=== PATIENT | male | born 1945 | race Asian ===

== ENCOUNTER → 2023-09-18 | Outpatient (CLI) | payer MEDICARE ==
--- NOTE | 2023-09-18 17:59 | P.SLEEP ---
History of Present Illness DATE: 09/18/2023 CONSULTATION/NEW PATIENT EVALUATION HISTORY OF PRESENT ILLNESS/SLEEP-WAKE EVALUATION: 78 year old gentleman had been evaluated in the sleep center for possible obstructive sleep apnea hypopnea syndrome. Patient has history of obstructive sleep apnea diagnosed about 10 years ago in another institution, she was started on treatment with CPAP, but then for different reasons was not able to use CPAP therapy. SLEEP SCHEDULE: Usually sleep schedule from midnight1 AM until 6 - 7 AM. FALLING ASLEEP: Sometimes patient has difficulties with falling asleep, although no TV in bedroom. DURING SLEEP: Patient usually sleeps on the side position with snoring and witnessed episodes of stop breathing during the sleep. No history of hypnogogical hallucinations, sleep paralysis, or cataplexy. DURING THE DAY/WAKE STATE: In the morning patient wake up tired. [place] sleepiness scale is increased to 11. Patient takes nap at around 6 PM. PAST MEDICAL HISTORY: Hypertension, hyperlipidemia, diabetes mellitus. PAST SURGICAL HISTORY: None. MEDICATIONS: Jardiance 25 mg once a day, Crestor 10 mg once a day, irbesartan 300 mg once a day, metoprolol 25 mg once a day, aspirin 81 mg once a day, Trulicity, tresiba, pioglitazone-metformin 15-500 mg twice a day. SOCIAL HISTORY: Positive history of smoking in the past quit about 50 years ago, alcohol consumption occasional. FAMILY HISTORY: Arthritis, liver problems. REVIEW OF SYSTEMS: Snoring, sleepiness during the day. No fevers. No double vision. No recent chest pain. No shortness of breath. No abdominal pain. No bleeding episodes. No blood in urine. No seizure episodes. PHYSICAL EXAMINATION: GENERAL: A pleasant patient without any distress. VITAL SIGNS: BP 143/85, HR 93, RR 12, weight 198.6 pounds, height 5 foot 6-1/4 inches, body mass index 31.7. HEENT: PERRLA, EOMI. Evaluation of oropharynx showed tongue protrudes midline, low position of soft palate Mallampati 4. NECK: Supple. No JVD. Thyroid is not palpable. 17.5 inches in circumference. LUNGS: Clear to percussion and to auscultation. Good air exchange. No wheezing or rhonchi. HEART: S1, S2 regular. No murmurs, gallops or rubs. ABDOMEN: Soft and nontender. Bowel sounds are present. No organomegaly appreciated. EXTREMITIES: No clubbing or cyanosis. AIR CARRIER OPERATIONS INSPECTOR: Awake, alert, and oriented x3. Cranial nerves 2 to 7 intact. There is no fasciculation or atrophy noted. No focal deficits observed. ASSESSMENT: 1. Snoring, witnessed episodes of stop breathing during the sleep, extremely low position of soft palate Mallampati 4, wide neck 17.5 inches in circumference, history of obstructive sleep apnea hypopnea syndrome in the past. Obstructive sleep apnea hypopnea syndrome. 2. Hypertension. 3. Diabetes mellitus. 4. Hyperlipidemia. 5 mild obesity. PLAN: 1. Polysomnography for evaluation of patient's breathing during sleep. 2. CPAP/BiPAP titration if sleep study confirms obstructive sleep apnea- hypopnea syndrome. 3. Preferable position during sleep on the side. 4. No driving if patient feels any sleepiness. Patient is aware of civil and criminal liability for unsafe driving. 5. Sleep hygiene with regular sleep time for at least 7.5-8 hours. 6. Watching and losing weight. Thank you very much for referring this patient for consultation. Sincerely, Sandeep Vinson MD, PhD, FAASM. Diplomat of [employer], Sleep Medicine Board by [employer] Engineering Documentation Specialist of [facility] [place] Past Medical History Past Medical History: Diabetes Mellitus, Hyperlipidemia, Hypertension History of Any Multi-Drug Resistant Organisms: None Reported Additional Past Surgical History / Comment(s): EGD Past Anesthesia/Blood Transfusion Reactions: No Reported Reaction Past Psychological History: No Psychological Hx Reported Past Alcohol Use History: Rare Additional Past Alcohol Use History / Comment(s): 1978-QUIT SMOKING Past Drug Use History: None Reported - Past Family History Mother Family Medical History: No Reported History Medications and Allergies Home Medications Medication Instructions Recorded Confirmed Type Insulin Degludec [Tresiba 15 units INJ DAILY 01/27/18 01/27/18 History Flextouch U-100] Irbesartan [Avapro] 150 mg PO DAILY 01/27/18 01/27/18 History Pioglitazone HCl/Metformin HCl 1 each PO BID 01/27/18 01/27/18 History [Actoplus Met 15 mg-500 mg Tab] Simvastatin [Zocor] 20 mg PO HS 01/27/18 01/27/18 History Allergies Allergy/AdvReac Type Severity Reaction Status Date / Time No Known Allergies Allergy Verified 01/27/18 11:14 Sleep Note - Sleep Note Sleep Note: Temperature: Pulse Rate: Respiratory Rate: Blood Pressure: SpO2: Height: Weight: BMI: Neck Circumference:
== END ==
LOC: 3 N SLEEP 13:56
PROVIDERS: ATTEND Internal Medicine
DX: G47.33 Obstructive sleep apnea (adult) (pediatric) (principal); I10 Essential (primary) hypertension; E11.9 Type 2 diabetes mellitus without complications; E78.5 Hyperlipidemia, unspecified; E66.9 Obesity, unspecified; R06.83 Snoring; Z79.4 Long term (current) use of insulin; Z87.891 Personal history of nicotine dependence
CPT/HCPCS: 99211

== ENCOUNTER 2024-05-10 19:13 | Outpatient (CLI) | payer MEDICARE ==
--- NOTE | 2024-05-13 13:41 | P.PCN ---
Description of Procedure: CLINICAL: Titration with positive air pressure has been done for correction of respiratory abnormalities during sleep. DESCRIPTION OF PROCEDURE: The standard montage for clinical polysomnography included the electroencephalogram, the electrocardiogram, the mentalis surface electromyography and Lead II cardiography. The respiratory battery consisted of measurements of nasal /buccal air flow, pressure transducer measurements from the nose, thoracic and /or abdominal effort and intercostal surface electromyography. Video monitoring has been done to check for any parasomnia events. Nocturnal oxyhemoglobin saturations were obtained by finger oximetry. Step-jane titration with positive airway pressure was utilized to control respiratory events. Raw data of sleep recording has been reviewed and is adequate. RESULTS: Sleep efficiency was slightly decreased to 82.1%. Latency to sleep onset was normal at 10.5 minutes.]. Sleep architecture showed stage N1 was normal 7.1%, Delta sleep was absent 0%, REM sleep was increased to 30.3%. Heart rate was minimum 51 BPM, maximum 64 BPM, average 57 BPM. EMG showed 0 periodic limb movements per hour. PAP titration have been done with CPAP up to the pressure 14 cm H2O. The best results were at the pressure 12 cm H2O. Apnea hypopnea index reduced to 1.3. IMPRESSION: 1. Severe obstructive sleep apnea hypopnea syndrome on controle with PAP treatment. 2. No significant periodic limb movements have been documented. Please see other impressions from consultation. PLAN: 1. The patient will have treatment with positive air pressure equipment with the level of pressure AutoPap 5-14 cm H2O and should use it every night for the whole night. 2. Watching weight. 3. Sleep hygiene with regular time in bed for at least 8 hours. 4. No driving if feeling any sleepiness. 5. I will see the patient for follow up visit to explain the results of the test, recommendations, check compliance with treatment and make any necessary adjustment related to mask fitting, pressure and humidification. Thank you very much for allowing me to participate in the management of your patient. Sincerely, Sandeep Vinson MD, PhD, FAASM Diplomat of [employer] Sleep Medicine Board of [employer] Medicine [facility] [place] cc: Susan Camilo MD
== END 2024-05-11 06:42 | disposition home or self-care (01) ==
LOC: 3 N SLEEP 19:13
PROVIDERS: ATTEND Internal Medicine
CPT/HCPCS: 95811

== ENCOUNTER → 2024-06-16 | Outpatient (CLI) | payer MEDICARE ==
--- NOTE | 2024-06-16 14:23 | P.PROGSL ---
Subjective DATE: 06/16/2024 TELEMEDICINE FOLLOW UP VISIT. I discussed results of sleep studies with patient in details. Polysomnogram documented severe obstructive sleep apnea hypopnea syndrome with apnea hypopnea index 41.8 with oxygen desaturation to severely low 66%. CPAP titration was successful for eliminating abnormal respiratory events, the best CPAP pressure was 12 cm of water. Patient likes the mask which was used during titration. Patient continued to have symptoms of obstructive sleep apnea hypopnea syndrome including snoring and sleepiness during the day. MEDICATIONS:1. Jardiance 25 mg once a day 2. Crestor 10 mg once a day 3. Irbesartan 300 mg once a day 4. Metoprolol 25 mg once a day 5. Aspirin 81 mg once a day 6. Trulicity Impressions: 1. Obstructive sleep apnea-hypopnea syndrome in severe range, apnea hypopnea index 41.8 with oxygen desaturation to 66% most uncontrolled with CPAP with a pressure 12 cm of water. 2. Hypertension. 3. Diabetes mellitus. 4. Hyperlipidemia. 5. Mild obesity. Plan: 1. Patient will be started on treatment with AutoPap and should use equipment every night for the whole night. 2. Watching and losing weight 3. Sleep hygiene with regular time in bed for at least 8 hours. 4. Precautions related to driving. No driving if feel any sleepiness. 5. I will see patient for follow-up visit in 30 to 90 days after patient will get CPAP unit to evaluate clinical response on treatment with CPAP, compliance with treatment and [place] adjustments related to mask fitting pressure and humidification. Thank you very much for allowing me to participate in the management of your patient. Sandeep Vinson MD, PhD, FAASM. Diplomat of [place] [employer] Medicine, Sleep Medicine Board by [place] [employer] Cafe Operator of [facility] [place] Objective Home Medications: Home Medications Medication Instructions Recorded Confirmed Type Insulin Degludec [Tresiba 15 units INJ DAILY 01/27/18 01/27/18 History Flextouch U-100] Irbesartan [Avapro] 150 mg PO DAILY 01/27/18 01/27/18 History Pioglitazone HCl/Metformin HCl 1 each PO BID 01/27/18 01/27/18 History [Actoplus Met 15 mg-500 mg Tab] Simvastatin [Zocor] 20 mg PO HS 01/27/18 01/27/18 History
== END ==
LOC: 3 N SLEEP 14:11
PROVIDERS: ATTEND Internal Medicine
DX: G47.33 Obstructive sleep apnea (adult) (pediatric) (principal); G47.36 Sleep related hypoventilation in conditions classified elsewhere; I10 Essential (primary) hypertension; E11.9 Type 2 diabetes mellitus without complications; E78.5 Hyperlipidemia, unspecified; E66.9 Obesity, unspecified; Z79.4 Long term (current) use of insulin; Z79.84 Long term (current) use of oral hypoglycemic drugs; Z79.899 Other long term (current) drug therapy; Z87.891 Personal history of nicotine dependence; Z68.31 Body mass index [BMI] 31.0-31.9, adult

== ENCOUNTER → 2024-06-17 | Outpatient (CLI) | payer MEDICARE ==
[2024-06-17 15:24] LABS: Basophils # (A) 0.02 X 10*3/uL (0.00-0.10); Basophils % (A) 0.3 %; Eosinophils # (A) 0.12 X 10*3/uL (0.04-0.35); HGB 13.2 g/dL (13.0-17.0); Lymphocytes # (A) 1.67 X 10*3/uL (0.90-5.00); Lymphocytes % (A) 28.1 %; MCH 31.5 pg (27.0-32.0); MCHC 32.2 g/dL (32.0-37.0); MCV 97.9 FL (80.0-97.0); Mean Platelet Volume 9.7 FL (9.5-12.2); Monocytes # (A) 0.58 X 10*3/uL (0.20-1.00); Monocytes % (A) 9.8 %; NRBC Per 100 WBC 0 X 10*3/uL (0.00-0.01); Neutrophils # (A) 3.53 X 10*3/uL (1.80-7.70); Neutrophils % (A) 59.5 %; Platelet Count 251 X 10*3/uL (140-440); RBC 4.19 X 10*6/uL (4.40-5.60); RDW 12.3 % (11.5-14.5); WBC 5.94 X 10*3/uL (4.50-10.00)
[2024-06-17 15:55] LABS: ALT 26 U/L (10-49); AST 28 U/L (14-35); Albumin 4.6 g/dL (3.8-4.9); Albumin/Globulin Ratio 1.48 Ratio (1.60-3.17); Alkaline Phosphatase 54 U/L (41-126); BUN/Creat Ratio 16.58 Ratio (12.00-20.00); Blood Urea Nitrogen 19.9 mg/dL (9.0-27.0); Calcium 9.5 mg/dL (8.7-10.3); Carbon Dioxide 28.1 mmol/L (21.6-31.8); Chloride 103 mmol/L (96-109); Chol/HDL Ratio 1.98 Ratio; Globulin 3.1 g/dL (1.6-3.3); Glucose 167 mg/dL (70-110); LDL Cholesterol,Calculated 40.7 mg/dL (0.0-131.0); Potassium 5.4 mmol/L (3.5-5.5); Sodium 143 mmol/L (135-145); Total Bilirubin 0.6 mg/dL (0.3-1.2); Total Protein 7.7 g/dL (6.2-8.2)
[2024-06-17 23:36] LABS: Urine Creatinine 62.3 mg/dL (39.0-259.0)
== END | disposition home or self-care (01) ==
LOC: LABWHC1 10:10
PROVIDERS: ATTEND Family Medicine
CPT/HCPCS: 36415; 80053; 80061; 82043; 82306; 82570; 82607; 83036; 84443; 85025

== ENCOUNTER 2024-07-14 07:09 | Day surgery (SDC) | payer MEDICARE ==
[2024-07-14] MEDS: IV FLUID CONTINUATION 1,000 ML IV ONE (07:37)
[2024-07-14 07:39] VITALS: TEMP 97
[2024-07-14] MEDS: LACTATED RINGERS 1,000 ML IV SCH (07:51)
[2024-07-14 07:54] LABS: Glucose,Whole Blood 112 mg/dL (70-110)
[2024-07-14] MEDS ORDERED: LIDOCAINE 1% INJ 10MG/ML (20 ML MDV) ONE (09:11)
[2024-07-14] MEDS ORDERED: PROPOFOL 10 MG/ML 20 ML VIAL IV ONE (09:11)
--- NOTE | 2024-07-14 09:31 | P.PCN ---
Date of Procedure: 07/14/24 Procedure(s) Performed: BRIEF HISTORY: Patient is a 78-year-old pleasant male scheduled for an elective colonoscopy as a part of screening for colon cancer. PROCEDURE PERFORMED: Colonoscopy. PREOPERATIVE DIAGNOSIS: Screening for colon cancer. IV sedation per Anesthesia. PROCEDURE: After informed consent was obtained, the patient, was brought into the endoscopy unit. IV sedation was administered by Anesthesia under continuous monitoring. Digital rectal examination was normal. Initially the Olympus CF-160 flexible video colonoscope was then inserted in the rectum, gradually advanced into the cecum without any difficulty. Careful examination was performed as the scope was gradually being withdrawn. Ileocecal valve and the appendiceal orifice were visualized and appeared normal. Prep was excellent. Mucosa of the cecum, ascending colon, transverse colon, descending colon, sigmoid colon, and rectum appeared normal. Retroflexion was performed in the rectum and no lesions were seen. The patient tolerated the procedure well. IMPRESSION: Normal-appearing colon from rectum to cecum with no evidence of colorectal neoplasia. RECOMMENDATIONS: Findings of this examination were discussed with the patient as well as his family. He was advised to have repeat screening colonoscopy in 10 years.
[2024-07-14 09:49] VITALS: BP 121/80; PULSE 66; RESP 16
== END 2024-07-14 10:05 | disposition home or self-care (01) ==
LOC: ORWHC2ENDO 07:09
PROVIDERS: ATTEND Internal Medicine Gastroenterology
DX: Z12.11 Encounter for screening for malignant neoplasm of colon (principal); I10 Essential (primary) hypertension; E78.5 Hyperlipidemia, unspecified; G47.33 Obstructive sleep apnea (adult) (pediatric); E11.9 Type 2 diabetes mellitus without complications; Z79.4 Long term (current) use of insulin; Z79.84 Long term (current) use of oral hypoglycemic drugs; Z79.899 Other long term (current) drug therapy
CPT/HCPCS: J2003; J2704; G0121

== ENCOUNTER → 2024-08-23 | Outpatient (CLI) | payer MEDICARE ==
[2024-08-23 17:10] VITALS: BP 127/75; PULSE 92; RESP 16; TEMP 98
--- NOTE | 2024-08-23 17:40 | P.PROGSL ---
Subjective DATE: 08/23/2024 FOLLOW UP VISIT. Patient with obstructive sleep apnea hypopnea syndrome return to sleep center for follow-up visit. Information from previous visit have been reviewed. Patient is using PAP equipment every night for the whole night, getting PAP supplies in time. The patient does not have significant problems with the mask, PAP unit and humidification. [place] sleepiness scale is 9, which is close to the border. I checked information from PAP unit. PAP unit pressure 5-14, average 10.3 cm H2O. Usage is 70% for more then 4 hours, average 5.6 hours per night. Leak is 29 l/m, which is in acceptable range. Apnea Hypopnea Index is 5.1, which is normal range. MEDICATIONS have been reviewed, please see below. During physical exam: GENERAL: A pleasant patient without any distress. VITAL SIGNS: Please see below, weight is 191.8 lbs. HEENT: PERRLA, EOMI.low position of soft palate, Mallapati 4 . NECK: Supple. No JVD. LUNGS: Clear to percussion and to auscultation. Good air exchange. No wheezing or rhonchi. HEART: S1, S2 regular. ABDOMEN: Soft and nontender.[] EXTREMITIES: No clubbing or cyanosis. MANPOWER DEVELOPMENT SPECIALIST: Awake, alert, and oriented x3. No focal deficit. Impressions: 1. Severe obstructive sleep apnea-hypopnea syndrome. Patient demonstrated good compliance with treatment, benefiting from treatment. 2. Obesity. 3. Hypertension. 4. Diabetes mellitus. 5. Hyperlipidemia. Plan: 1. Continue using PAP equipment every night for the whole night. 2. Sleep hygiene with regular time in bed for at least 7.5-8 hours 3. PAP unit should stay lower then position of the head. 4. Advised patient to remove all remaining water from humidifier canister daily and make it dry after each usage. Refill canister with fresh distilled water before each usage. 5. Watching weight. 6. Precautions related to driving. No driving if feel any sleepiness. 7. I will maintain prescription for PAP supplies including mask, tube, filters. 8. Follow up visit in 8 months or earlier if patient has any problems. Thank you very much for allowing me to participate in the management of your patient. Sandeep Vinson MD, PhD, FAASM. Diplomat of [place] [employer], Sleep Medicine Board by [place] Medicine Dietetic Tech of [facility] [place] cc: Susan Camilo MD Objective - Vital Signs Vital Signs: Vital Signs Temp 98.0 F 08/23/24 17:09 Pulse 92 08/23/24 17:09 Resp 16 08/23/24 17:09 BP 127/75 08/23/24 17:09 Pulse Ox 96 08/23/24 17:09 FiO2 Intake & Output 08/22/24 08/23/24 08/23/24 18:59 06:59 18:59 Weight 86.863 kg Home Medications: Home Medications Medication Instructions Recorded Confirmed Type Irbesartan [Avapro] 150 mg PO DAILY 01/27/18 07/14/24 History Pioglitazone HCl/Metformin HCl 1 each PO BID 01/27/18 07/14/24 History [Actoplus Met 15 mg-500 mg Tab] Aspirin 81 mg PO DAILY 07/12/24 07/14/24 History Furosemide [Lasix] 20 mg PO DIRECTED PRN 07/12/24 07/14/24 History Insulin Glargine,Hum.rec.anlog 36 units SQ DAILY 07/12/24 07/14/24 History [Lantus Solostar Pen] Metoprolol Succinate [Kapspargo 25 mg PO DAILY 07/12/24 07/14/24 History Sprinkle] Rosuvastatin [Crestor] 10 mg PO HS 07/12/24 07/14/24 History Unk Multi Vitamin For Men 1 tab PO DAILY 07/12/24 07/14/24 History
== END ==
LOC: 3 N SLEEP 16:11
PROVIDERS: ATTEND Internal Medicine
DX: G47.33 Obstructive sleep apnea (adult) (pediatric) (principal); E66.9 Obesity, unspecified; I10 Essential (primary) hypertension; E11.9 Type 2 diabetes mellitus without complications; E78.5 Hyperlipidemia, unspecified; Z99.89 Dependence on other enabling machines and devices; Z79.899 Other long term (current) drug therapy; Z79.4 Long term (current) use of insulin; Z87.891 Personal history of nicotine dependence; Z68.31 Body mass index [BMI] 31.0-31.9, adult
CPT/HCPCS: 99212

== ENCOUNTER → 2024-12-02 | Outpatient (CLI) | payer MEDICARE ==
[2024-12-02 14:18] VITALS: BP 129/65; PULSE 78; RESP 16; TEMP 97.6
--- NOTE | 2024-12-02 14:51 | P.PROGSL ---
Subjective DATE: 12/02/2024 FOLLOW UP VISIT. Patient with obstructive sleep apnea hypopnea syndrome return to sleep center for follow-up visit. Information from previous visit have been reviewed. This is first visit with new CPAP unit. Patient is using PAP equipment every night for the whole night, getting PAP supplies in time. The patient does not have significant problems with the mask, PAP unit and humidification. [place] sleepiness scale is 8, which is normal. I checked information from PAP unit. PAP unit pressure 5-14, average 11.6 cm H2O. Usage is 90% and 73% for more than 4 hours, average 5.5 hours. Leak is increased to 31.8 l/m. Apnea Hypopnea Index is 5.7, which is borderline. MEDICATIONS have been reviewed, please see below. During physical exam: GENERAL: A pleasant patient without any distress. VITAL SIGNS: Please see below, weight is 187 lbs. HEENT: PERRLA, EOMI.low position of soft palate, Mallapati 4 . NECK: Supple. No JVD. LUNGS: Clear to percussion and to auscultation. Good air exchange. No wheezing or rhonchi. HEART: S1, S2 regular. ABDOMEN: Soft and nontender. Slightly obese EXTREMITIES: No clubbing or cyanosis. NURSING HOME ADMINISTRATOR: Awake, alert, and oriented x3. No focal deficit. Impressions: 1. Obstructive sleep apnea-hypopnea syndrome. Patient demonstrated great compliance with treatment, benefiting from treatment. 2. Obesity. 3. Hypertension. 4. Diabetes mellitus. 5. Hyperlipidemia. Plan: 1. Continue using PAP equipment every night for the whole night. 2. Sleep hygiene with regular time in bed for at least 7.5-8 hours 3. PAP unit should stay lower then position of the head. 4. Advised patient to remove all remaining water from humidifier canister daily and make it dry after each usage. Refill canister with fresh distilled water before each usage. 5. Watching weight. 6. Precautions related to driving. No driving if feel any sleepiness. 7. I will maintain prescription for PAP supplies including mask, tube, filters. 8. Follow up visit in 8 months or earlier if patient has any problems. Thank you very much for allowing me to participate in the management of your patient. Sandeep Vinson MD, PhD, FAASM. Diplomat of [place] [employer] [employer] Sleep Medicine, Sleep Medicine Board by [place] [employer] [employer] Medicine Stacking Machine Operator of [facility] [place] Objective - Vital Signs Vital Signs: Vital Signs Temp 97.6 F 12/02/24 14:17 Pulse 78 12/02/24 14:17 Resp 16 12/02/24 14:17 BP 129/65 12/02/24 14:17 Pulse Ox 98 12/02/24 14:17 FiO2 Intake & Output 12/01/24 12/02/24 12/02/24 18:59 06:59 18:59 Weight 84.822 kg Home Medications: Home Medications Medication Instructions Recorded Confirmed Type Irbesartan [Avapro] 150 mg PO DAILY 01/27/18 07/14/24 History Pioglitazone HCl/Metformin HCl 1 each PO BID 01/27/18 07/14/24 History [Actoplus Met 15 mg-500 mg Tab] Aspirin 81 mg PO DAILY 07/12/24 07/14/24 History Furosemide [Lasix] 20 mg PO DIRECTED PRN 07/12/24 07/14/24 History Insulin Glargine,Hum.rec.anlog 36 units SQ DAILY 07/12/24 07/14/24 History [Lantus Solostar Pen] Metoprolol Succinate [Kapspargo 25 mg PO DAILY 07/12/24 07/14/24 History Sprinkle] Rosuvastatin [Crestor] 10 mg PO HS 07/12/24 07/14/24 History Unk Multi Vitamin For Men 1 tab PO DAILY 07/12/24 07/14/24 History
== END | disposition home or self-care (01) ==
LOC: 3 N SLEEP 13:38
PROVIDERS: ATTEND Internal Medicine
DX: G47.33 Obstructive sleep apnea (adult) (pediatric) (principal); I10 Essential (primary) hypertension; E66.9 Obesity, unspecified; E11.9 Type 2 diabetes mellitus without complications; E78.5 Hyperlipidemia, unspecified; Z87.891 Personal history of nicotine dependence
CPT/HCPCS: 99212